=== PATIENT | male | born 1985 | race Caucasian/White ===

== ENCOUNTER → 2024-02-24 12:39 | Outpatient (REF) | payer OTHER, SELFPAY | LOC: PAVMRI 12:39 | PROVIDERS: ATTENDING PHYSICIAN Nurse Practitioner Family | DX: M25.511 Pain in right shoulder (principal) | CPT/HCPCS: 73221 ==

== ENCOUNTER → 2024-10-01 14:43 | Outpatient (REF) | payer OTHER, SELFPAY | LOC: HWRAD 14:43 | PROVIDERS: ATTENDING PHYSICIAN Nurse Practitioner Family | DX: R10.9 Unspecified abdominal pain (principal) | CPT/HCPCS: 76775 ==

== ENCOUNTER 2024-10-05 16:32 | Emergency (ER) | payer OTHER, SELFPAY ==
[2024-10-05 16:35] VITALS: BP 154/83
[2024-10-05 17:11] LABS: % Basophils 1.2 % (0-2); % Eosinophils 5.6 % (0-6); % Immature Granulocytes 0.2 % (0-0.5); % Lymphocytes 37.5 % (20.5-51.1); % Monocytes 10.8 % (1.7-9.3); % Neutrophils 44.7 % (42.2-75.2); Absolute Basophils 0.1 10^3/uL (0-0.2); Absolute Eosinophils 0.3 10^3/uL (0-0.7); Absolute Lymphocytes 1.8 10^3/uL (1.2-3.4); Absolute Monocytes 0.5 10^3/uL (0.1-0.6); Absolute Neutrophils 2.2 10^3/uL (1.4-6.5); Hematocrit 43.2 % (39.0-52.0); Hemoglobin 15.1 g/dL (13.0-18.0); Mean Corpuscular Hgb 29.2 pg (27.0-31.0); Mean Corpuscular Volume 83.4 fL (80.0-94.0); Mean Platelet Volume 9.3 fL (7.4-10.4); Nucleated Red Blood Cells % 0 % (-); Platelet Count 217 10^3/uL (130-400); Red Blood Cell Count 5.18 10^6/uL (4.70-6.10); Red Cell Dist. Width 12.2 % (11.5-14.5); White Blood Cell Count 4.8 10^3/uL (4.8-10.8)
[2024-10-05 17:19] LABS: ALT (SGPT) 64 U/L (0-50); AST (SGOT) 39 U/L (17-59); Albumin 5.1 g/dl (3.5-5.0); Alkaline Phosphatase 60 U/L (38-126); Blood Urea Nitrogen 22 mg/dl (9-20); Calcium 9.9 mg/dl (8.4-10.2); Carbon Dioxide 23 mmol/L (22-30); Chloride 103 mmol/L (98-107); Glucose 101 mg/dl (70-99); Potassium 4.3 mmol/L (3.5-5.1); Sodium 138 mmol/L (135-145); Total Bilirubin 0.9 mg/dl (0.2-1.3); eGFR > 60.00
[2024-10-05 18:13] VITALS: BMI 32.9
--- NOTE | 2024-10-05 18:16 | EDRN ---
Pt being treated for kidney stones, started flomax 2 days ago. Pt had a metallic taste in his mouth 4 days ago that has been persistent. Today, pt developed chills and pain in LLQ increased. Pt wants to make sure his kidney stone isn't stuck
somewhere. Pt also has pain L flank. Pt feels tired and lightheaded. No n/v/d/c, cp, sob. Pt has frequent urination.
[2024-10-05 18:20] VITALS: BP 143/73
[2024-10-05 18:25] LABS: Urine Albumin Negative (Neg - Trace); Urine Bilirubin Negative (Negative); Urine Character Clear (Clear); Urine Color Yellow; Urine Glucose Negative (Negative); Urine Ketone Negative (Negative); Urine Leukocyte Negative (Negative); Urine Nitrite Negative (Negative); Urine Occult Blood Negative (Negative); Urine Urobilinogen Negative (Neg - 1+)
--- NOTE | 2024-10-05 18:32 | ED.GENMED ---
History of Present Illness
General
Chief Complaint: Flank Pain
Time Seen by Provider: 10/05/24 18:21
History of Present Illness
History of Present Illness:
39-year-old male history of migraines, asthma, kidney stones presenting with left flank pain for the past 1 month. Patient states that its gotten worse over the past 4 days. Patient reports dysuria. Patient denies hematuria. Patient states that
he was seen by his PCP who ordered renal ultrasound 4 days ago that was unremarkable. Patient denies nausea, vomiting, diarrhea, or fever.
Past History
Past History
ED Past Medical History: Asthma and Other (Migraines)
ED Past Surgical History: None
Patient has exhibited threatening behavior?: No
Social History
Tobacco: Non-smoker
Alcohol: Occasional
Drug: None
Personal:
Living: with family
Phy Exam
Physical Exam
Physical Exam:
General: Alert, no acute distress
Head: NCAT
Eyes: clear conjunctiva
Neck: supple
Cardiac: regular rate and rhythm, no murmur
Lungs: clear to auscultation bilaterally. No wheezes, rales, or rhonchi. Speaking full unlabored sentences. No respiratory distress.
Abdomen: soft, nondistended llq tenderness. No rebound or guarding. bilateral CVA tenderness
MSK: no lower extremity edema bilaterally. No deformity
Skin: warm, dry
Neuro: Alert and oriented x3. no focal deficits
Course
Orders/Labs/Results
Orders:
Orders
10/05/24 16:55
Complete Blood Count/With Diff Urgent
Comprehensive Metabolic Panel Urgent
Lactic Acid Urgent
10/05/24 18:14
Urinalysis Reflex To Culture Urgent
Date Specimen was Collected: 10/05/24
Time Specimen was Collected: 18:09
10/05/24 18:32
CT Abd/pelvis Wo Iv Cont Urgent
Comment:
Reason For Exam: left flank pain, hx kidney stones
0.9% Sodium Chloride 500 ml [Nss] 500 ml IV BOLUS
Ketorolac [Toradol] 15 mg IV NOW STA
Abnormal Lab Results
10/05/24
16:55
Monocytes % 10.8 H %
(1.7-9.3)
BUN 22 H mg/dl
(9-20)
Glucose 101 H mg/dl
(70-99)
ALT 64 H U/L
(0-50)
Albumin 5.1 H g/dl
(3.5-5.0)
10/05/24 16:55
10/05/24 16:55
Vital Signs
Initial and Last Documented VS:
Initial Vital Signs
Temp Pulse Resp BP Pulse Ox
98.2 F 75 20 154/83 99
10/05/24 16:35 10/05/24 16:35 10/05/24 16:35 10/05/24 16:35 10/05/24 16:35
Last Documented Vital Signs
Temp Pulse Resp BP Pulse Ox
97.8 F 72 14 130/75 98
10/05/24 18:20 10/05/24 20:15 10/05/24 20:15 10/05/24 20:15 10/05/24 20:15
MDM/Problems Addressed
Differential Diagnosis Includes:
Kidney stone, UTI, musculoskeletal pain, viral syndrome
MDM/Problems Addressed:
Labs reviewed. WBC 4.8. Creatinine within normal limits. UA negative for UTI, no blood. Pending CT abdomen/pelvis
CT abdomen/pelvis shows No left renal or ureteral calculus. No bladder calculus. No obstructive uropathy. There are 2 tiny nonobstructing right renal calculi. Constipation with mild to moderate colonic fecal burden. No evidence of bowel obstruction.
No acute inflammatory process within the abdomen or pelvis. As read by radiology
Discussed results with pt at bedside. Advised to take miralax for constipation, tylenol/motrin as needed. Otherwise stable for discharge/PCP follow up
*Critical Care Note
Total Time (30-74mins, 75-104mins- exclusive of procedures): Not Applicable
ED Attending Note
-
Portions of this chart may have been created with voice recognition software.� Occasional wrong word or��sound alike� substitutions may have occurred due to the inherent limitations of voice recognition software.
Discharge Plan
Departure
Patient Disposition: Home (Routine Discharge)
Date of Disposition: 10/05/24
Time of Disposition: 19:57
Patient with high blood pressure during this ER visit?: Yes
Discharge Problem:
Left flank pain, Constipation
Instructions: Constipation in adults, BLOOD PRESSURE
Prescriptions:
No Action
cetirizine 10 MG tablet
10 mg PO HSPRN PRN (Reason: allergies)
fluvoxamine 50 MG tablet
50 mg PO DAILYPRN PRN (Reason: anxiety)
fluvoxamine 50 MG tablet
50 mg PO HS
cholecalciferol (vitamin D3) [Vitamin D3] 50 MCG capsule
50 mcg PO DAILY
bupropion HCl [Wellbutrin SR] 100 mg Tablet Sustained-Release 12 Hr
100 mg PO BID
tamsulosin [Flomax] 0.4 mg Capsule
0.4 mg PO DAILY
cyclobenzaprine [Flexeril] 5 mg Tablet
5 mg PO HS PRN (Reason: kidney stone pain)
Activity Restrictions/Additional Instructions:
Take Miralax daily for constipation
Take tylenol 975mg every 6 hours and/or Ibuprofen 800mg every 8 hours with food as needed for pain
Follow up with primary care doctor next week
Return to the emergency department for new/worsening symptoms
Interventions
Interventions:
*Risk Screen - Suicide Last Done: 10/05/24 18:09
*General Assessment Last Done: 10/05/24 16:35
*Neglect/Abuse Screening Last Done: 10/05/24 18:09
ED- Fall Risk Assessment Last Done: 10/05/24 18:55
*ED COVID-19 Vaccine History Last Done: 10/05/24 18:09
*Nursing Disposition Last Done: 10/05/24 20:25
HL-Cldlqb-Ebvnfrnnkj Assessment Last Done: 10/05/24 18:22
ED-Male Genitourinary Assessment Last Done: 10/05/24 18:22
Discharge Date and Time
Discharge Date/Time: 10/05/24 20:25
Print Language: GERMAN
[2024-10-05] MEDS: NSS 500 IV (18:52)
[2024-10-05] MEDS: TORADOL 15 MG IV (18:54)
[2024-10-05 20:15] VITALS: BP 130/75
== END 2024-10-05 20:25 | disposition home or self-care (01) ==
LOC: EMR 16:32
PROVIDERS: Emergency Medicine; EMERGENCY PHYSICIAN Emergency Medicine
DX: K59.00 Constipation, unspecified (principal); N20.0 Calculus of kidney; J45.909 Unspecified asthma, uncomplicated
CPT/HCPCS: 96374; 96361; 99284; 74176; 80053; 81003; 83605; 85025